=== PATIENT | female | born 1935 | race Hispanic/Latino ===

== ENCOUNTER 2022-12-05 18:48 | Emergency (ER) | payer OTHER ==
[~2022-12-05] VITALS: Ht 154.9 cm; Wt 63.5 kg
[2022-12-05 18:50] VITALS: BP 192/61
== END 2022-12-05 19:26 | disposition home or self-care (01) ==
LOC: EDH 18:48
DX: R53.1 Weakness (principal); Z53.21 Procedure and treatment not carried out due to patient leaving prior to being seen by health care provider
CPT/HCPCS: 99281